=== PATIENT | male | born 1970 | race Caucasian/White ===

== ENCOUNTER 2024-07-04 22:24 | Emergency (ER) | payer OTHER, SELFPAY ==
[2024-07-04 22:33] VITALS: BP 146/83
--- NOTE | 2024-07-04 23:45 | ED.GENMED ---
History of Present Illness
General
Chief Complaint: Musculo-Skeletal Complaint
Source: patient
Exam Limitations: none
Time Seen by Provider: 07/04/24 23:10
Nursing documentation reviewed up to this point in time: agreed with
History of Present Illness
History of Present Illness:
54-year-old male with past medical history as documented presents to the ER for evaluation of right calf pain. Patient reports symptoms started about a week ago he cannot recall any injury or trauma. He reports that he will get some aching and
occasionally a warm/burning sensation localized to the right calf. No clear triggering or relieving factors noted. He denies any associated swelling or rash/redness. Again, cannot recall trauma or injury. He says that he was speaking with a
family member who is a nurse who recommended he come to the ER for evaluation. Aside from above he denies any chest pain, shortness of breath, back pain, numbness or weakness or any other complaints.
Review of Systems
Review of Systems
All Other Systems: ROS reviewed and negative except as documented in HPI and ROS
Constitutional: Denies fever
Respiratory: Denies trouble breathing
Cardiac: Denies chest pain
ABD/GI: Denies abdominal pain
Musculoskeletal: Reports muscle pain (Calf pain); Denies edema or back pain
Skin: Denies rash
Neurological: Denies weakness or numbness
Phy Exam
Physical Exam
Physical Exam:
General: Awake, alert; no acute distress
Head: Normocephalic, atraumatic
Eyes: Conjunctiva normal
Throat: Airway intact, handling secretions
Neck: Trachea midline
Lungs: Breathing comfortably no distress
Heart: Regular rate
Neuro: No gross deficits
Skin: no rash
Extremities: No edema in extremities�specifically no swelling of the right lower extremity, on exam of his right lower extremity he has no reproducible calf tenderness, no masses or cyst in the popliteal fossa, minor abrasion to the anterior san
but no erythema or signs of infection; he has good popliteal and DP pulse in the right lower extremity
Scores
Heart Failure Risk
Heart Failure Risk Score: Not Applicable
Heart Score for Chest Pain Patients
STEMI patient?: Not applicable
Withdrawal Assessment of Alcohol
Withdrawal Assessment Completed?: Not applicable
Course
Orders/Labs/Results
Orders:
Orders
07/04/24 23:11
US Periph Venous LOWER Ext RT Urgent
Comment:
Reason For Exam: right calf pain
Vital Signs
Initial and Last Documented VS:
Initial Vital Signs
Temp Pulse Resp BP Pulse Ox
36.4 C 65 18 146/83 99
07/04/24 22:33 07/04/24 22:33 07/04/24 22:33 07/04/24 22:33 07/04/24 22:33
Last Documented Vital Signs
Temp Pulse Resp BP Pulse Ox
36.4 C 65 18 146/83 99
07/04/24 22:33 07/04/24 22:33 07/04/24 22:33 07/04/24 22:33 07/04/24 22:33
MDM/Problems Addressed
Differential Diagnosis Includes:
DVT, calf strain, lumbar radiculopathy
MDM/Problems Addressed:
54-year-old male presents for evaluation of right calf pain x 1 week. No trauma that he can recall. Vitals and exam as above. He has no skin changes, no edema, no reproducible tenderness. He has good pulses throughout and his symptoms are
nonexertional�do not suspect vascular insufficiency or claudication symptoms. Will check an ultrasound to rule out DVT. Nothing on exam to suggest cellulitis or infection. His symptoms are fairly localized to the calf and not necessarily
radicular which goes somewhat against lumbar radiculopathy. Suspect likely strain from some occult trauma. Will reassess after ultrasound.
Ultrasound negative for DVT. Vitals stable, low suspicion for emergent pathology at this point suspect likely mild calf strain. Stable for discharge to follow-up with PCP. Patient feels comfortable with this plan. All questions answered.
*Radiology
Radiology exam reviewed: radiology read reviewed
*Pulse Oximetry
Patient hypoxic: no
*Critical Care Note
Total Time (30-74mins, 75-104mins- exclusive of procedures): Not Applicable
Data Reviewed
Source: patient
ED Attending Note
-
Portions of this chart may have been created with voice recognition software.� Occasional wrong word or��sound alike� substitutions may have occurred due to the inherent limitations of voice recognition software.
Discharge Plan
Departure
Patient Disposition: Home (Routine Discharge)
Date of Disposition: 07/05/24
Time of Disposition: 01:01
Patient with high blood pressure during this ER visit?: Yes
Discharge Problem:
Pain of right calf
Instructions: Lower Extremity Muscle Strain (DC)
Referrals:
Cortes Claire MD [Family Provider] - Follow up in 5-7 days
Activity Restrictions/Additional Instructions:
Thank you for visiting the Emergency Department at [facility].
1. Please schedule a follow up appointment as directed. Call first thing tomorrow morning to make an appointment.
2. If indicated, please take your medications as instructed and indicated on discharge paperwork.
3. If any of your symptoms do not improve, or persist, or become more severe within 6-12 hours, please return to the emergency department for further care.
4. Please return to the emergency department if you develop a headache, neck pain/stiffness, fever greater than 100.4F, chest pain, shortness of breath, persistent nausea, vomiting, slurred speech, difficulty walking, numbness/tingling, weakness,
signs of infection or any other symptoms that are worrisome to you.
Please call [phone] if you have any questions.
Interventions
Interventions:
*General Assessment Last Done: 07/04/24 22:33
ED- Fall Risk Assessment Last Done: 07/05/24 00:21
*ED COVID-19 Vaccine History Last Done: 07/04/24 22:33
ED-Musculoskeletal Assessment Last Done: 07/05/24 00:20
Discharge Date and Time
Print Language: SPANISH
== END 2024-07-05 01:10 | disposition home or self-care (01) ==
LOC: EMR 22:24
PROVIDERS: EMERGENCY PHYSICIAN Emergency Medicine; FAMILY PHYSICIAN Family Medicine
DX: M79.661 Pain in right lower leg (principal)
CPT/HCPCS: 99284; 93971